=== PATIENT | male | born 1950 | race Caucasian/White ===

== ENCOUNTER 2017-01-31 14:42 | Emergency (ER) | payer MEDICARE, OTHER ==
[2017-01-31 14:56] VITALS: BP 156/77
--- NOTE | 2017-01-31 15:00 | ERNOTE ---
ENT HPI Date of Service: 01/31/17 Time Seen by Provider: 01/31/17 14:58 Source: patient - Immun/Allergies/Home Medications Immunizations: IMMUNIZATION HX Immunizations Up to Date Yes History of Influenza Vaccine No Hx Pneumococcal Vaccination No Allergies/Adverse Reactions: Allergies Allergy/AdvReac Type Severity Reaction Status Date / Time No Known Allergies Allergy Unverified 01/31/17 14:57 Home Medications: HOME MEDICATIONS Amoxicillin 875 mg PO BID #20 tablet 01/31/17 [Last Taken Unknown] Amoxicillin Trihydrate [Amoxil Suspension] 10 ml PO BID #200 ml 01/31/17 [Last Taken Unknown] - History of Present Illness Narrative: SWELLING TO LEFT JAW THAT SEEMS TO BE WORSE. NO HX OF ANY TRAUMA OR FEVER. IS GETTING HARD TO OPEN MOUTH. Review of Systems - Review of Systems Constitutional: Present: See HPI EYE: Present: no symptoms reported ENT: Present: other - LEFT JAW SWELLING Respiratory: Present: no symptoms reported Cardiology: Present: no symptoms reported All Other Systems: All systems neg except as marked - Patient's Past Medical History Patient History - Medical: No pertinent hx Patient History - Cardiac/Respiratory: No pertinent hx Patient History - Cancer: No Hx of Cancer Patient History - Surgical Procedures: No surgical history Patient History - Other: None - Social History Living Situations: home Psych History: No pertinent hx Smoking Status: Light tobacco smoker Alcohol Use: none Drug Use: none - Immunizations Immunizations Up to Date: Yes Hx Pneumococcal Vaccination: No History of Influenza Vaccine: No Physical Exam - Physical Exam General Appearance: Present: wd/wn, alert, no apparent distress Eye Exam: Normal inspection: bilateral Ears, Nose, Throat: Present: normal except - - SOFT TISSUE SWELLING AT THE ANGLE OF THE LEFT JAW. IS MILDLY TENDER BUT NO GREATLY SO, AND IS NOT HOT. IS MORE FIRM WITH SWELLING OF THE BUCCAL MEMBRANE LATERAL TO HIS LOWER LEFT FIRST MOLAR THAT IS VERY CARIOUS BUT NOT TENDER. THE POST. BICUSPID ON THAT SIDE IS GONE Neck: Present: normal inspection, nontender. Absent: lymphadenopathy (L) ED Progress - Vital Signs Patient's Vital Signs:: I have reviewed the patient's vital signs. Vital Signs: Vital Signs 01/31/17 14:49 Temperature 37.1 C Pulse Rate 86 Respiratory 15 Rate Blood Pressure 156/77 O2 Sat by Pulse 95 Oximetry - Progress/Reassessment Chief Complaint: Facial Injury Departure Clinical Impression: Jaw swelling - Departure Disposition: Home Follow Up Needed Condition: Good Instructions: Dental Abscess, [id number], Salivary Gland Infection Additional Instructions: TAKE THE ANTIBIOTIC DIRECTED AND USE WARM COMPRESSES FOR COMFORT. SUCK ON LEMON DROPS THIS MAY WELL BE A PROBLEM OF YOUR SALIVARY GLAND GETTING PLUGGED. USE IBUPROFEN FOR PAIN IF NEEDED. I SUGGEST THAT YOU RECHECK WITH YOUR DENTIST IF IT IS YOUR TOOTH YOU MAY NEED HIS EXPERTISE. I DON'T THINK IT IS A TEMPORAL MANDIBULAR JOINT DISLOCATION YOU MOVE IT VERY WELL NOW AND THE SWELLING AND SORENESS IS NOT IN THE JOINT AREA. Referrals: NONE,NONE [Primary Care Provider] - Prescriptions: Amoxicillin 875 mg PO BID #20 tablet Amoxicillin Trihydrate [Amoxil Suspension] 10 ml PO BID #200 ml
== END 2017-01-31 15:29 | disposition home or self-care (01) ==
LOC: ER 14:42
DX: R68.84 Jaw pain (principal); Z72.0 Tobacco use